=== PATIENT | male | born 1975 | race Caucasian/White ===

== ENCOUNTER 2018-08-01 11:54 | Emergency (ER) | payer BC ==
[2018-08-01 12:03] VITALS: BP 121/79; PULSE 75; TEMP 97.9; BMI 26.6
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
== END 2018-08-01 14:17 | disposition home or self-care (01) ==
LOC: JERFT 11:54
DX: S29.012A Strain of muscle and tendon of back wall of thorax, initial encounter (principal); X50.0XXA Overexertion from strenuous movement or load, initial encounter; Y93.89 Activity, other specified; Y92.63 Factory as the place of occurrence of the external cause; Y99.0 Civilian activity done for income or pay
CPT/HCPCS: 72050-TC-FY; 99281-25

== ENCOUNTER 2020-11-08 05:31 | Emergency (ER) | payer BC ==
[2020-11-08 06:27] VITALS: BP 143/87; PULSE 66; TEMP 98; BMI 27.4
[2020-11-08] MEDS ORDERED: KETOROLAC TROMETHAMINE 30 MG/1 ML VIAL IM ONE (07:26)
[2020-11-08] MEDS ORDERED: CYCLOBENZAPRINE HCL 10 MG TABLET (FP) PO ONE (07:26)
[2020-11-08] MEDS ORDERED: KETOROLAC TROMETHAMINE 30 MG/1 ML VIAL ONE ×2 (07:30→07:37)
[2020-11-08] MEDS ORDERED: CYCLOBENZAPRINE HCL 10 MG TABLET (FP) ONE ×2 (07:30→07:37)
== END 2020-11-08 07:50 | disposition home or self-care (01) ==
LOC: JER 05:31
PROC: 3E0233Z Introduction of Anti-inflammatory into Muscle, Percutaneous Approach (ICD-10-PCS; principal; 2020-11-08)
DX: M54.9 Dorsalgia, unspecified (principal)
CPT/HCPCS: 99284-25

== ENCOUNTER 2021-08-09 11:22 | Emergency (ER) | payer BC ==
[2021-08-09 11:41] VITALS: BP 128/88; PULSE 80; TEMP 98.1; BMI 29.0
== END 2021-08-09 13:32 | disposition home or self-care (01) ==
LOC: JERFT 11:22
PROC: 0H9BXZZ Drainage of Right Upper Arm Skin, External Approach (ICD-10-PCS; principal; 2021-08-09)
DX: L02.413 Cutaneous abscess of right upper limb (principal)
CPT/HCPCS: 87070; 87205; 99283-25

== ENCOUNTER 2023-11-12 22:44 | Emergency (ER) | payer OTHER, BC ==
[2023-11-12 22:53] VITALS: BP 121/82; PULSE 83; RESP 18; TEMP 97.9; BMI 29.0
[2023-11-12] MEDS ORDERED: KETOROLAC TROMETHAMINE 30 MG/1 ML VIAL ONE (23:49)
[2023-11-12] MEDS: KETOROLAC TROMETHAMINE 30 MG/1 ML VIAL IM ONE (23:54)
== END 2023-11-13 00:30 | disposition home or self-care (01) ==
LOC: JER 22:44
PROC: 3E0133Z Introduction of Anti-inflammatory into Subcutaneous Tissue, Percutaneous Approach (ICD-10-PCS; principal; 2023-11-12)
DX: M19.021 Primary osteoarthritis, right elbow (principal); M25.521 Pain in right elbow; X50.1XXA Overexertion from prolonged static or awkward postures, initial encounter
CPT/HCPCS: 73060-TC-RT-FY; 73070-TC-RT-FY; 99284-25